=== PATIENT | female | born 1985 | race Caucasian/White ===

== ENCOUNTER 2020-08-21 10:49 | Emergency (ER) | payer OTHER, MEDICAID, SELFPAY ==
[2020-08-21 10:54] VITALS: BP 140/88; PULSE 70; RESP 15; TEMP 37.1; O2SAT 99
--- NOTE | 2020-08-21 11:21 | ED.DENTAL ---
HPI - Dental/Oral <ANALIA Pizano - Last Filed: 08/21/20 13:52> General Chief complaint: Dental/Oral Stated complaint: mouth pain/swelling post teeth out Time Seen by Provider: 08/21/20 10:50 Source: patient Mode of arrival: Ambulatory Limitations: no limitations History of Present Illness HPI Narrative: This is a 34 year female, nonsmoker, who has 2 left lower teeth extraction [address] Haas in [facility] presents to ED with chief complain of severe pain on the tooth extraction site. She had taken Keflex antibiotic medication 1 day prior to the procedure and she has continued the antibiotic medication has about 3 more day course of the medication and ran out of Percocet yesterday. She also is taking Tylenol and Advil for pain management but this has not been effective. Patient has foul tasting drainage from the extraction site, ran a low grade fever upto 99.3 3 days ago despite the antibiotic medications and antipyretics. Patient is able to swallow. She denies fever, chills but has occasional nausea. Patient reports cervical and submandibular lymph nodes tenderness. She contacted Dr. Haas's office but was not able to get a follow up appointment. Related Data Home Medications Medication Instructions Recorded Confirmed trazodone 25 mg PO BEDTIME PRN 08/21/20 08/21/20 Previous Rx's Medication Instructions Recorded albuterol sulfate 90 mcg/actuation 2 puff INHALATION Q4-6H PRN #18 g 08/14/20 aerosol inhaler amoxicillin-pot clavulanate 1 tab PO BID 7 Days #14 tab 08/21/20 [Augmentin] oxycodone-acetaminophen 1 tab PO TID PRN #7 tab 08/21/20 Allergies Allergy/AdvReac Type Severity Reaction Status Date / Time latex Allergy Verified 08/21/20 10:56 Sulfa (Sulfonamide AdvReac vomiting Verified 08/21/20 10:56 Antibiotics) almonds Allergy Severe swelling, Uncoded 08/14/20 16:25 hives, lip swelling Review of Systems <ANALIA Pizano - Last Filed: 08/21/20 13:52> Review of Systems Narrative: General: See HPI HEENT: See HPI Respiratory: Denies dyspnea, cough, wheezing, hemoptysis, sputum. Cardiovascular: Denies chest pain, palpitations, orthopnea, edema. Gastrointestinal: Denies (+) nausea, vomiting, abdominal pain, diarrhea, constipation, melena. : Denies dysuria, frequency, incontinence, hematuria, urinary retention. Musculoskeletal: Denies weakness, joint pain or bony pain. Skin: Denies rash, skin lesions, or other. Neurologic: Denies weakness, headache, numbness, change in speech, confusion, seizures, incoordination. Patient History <ANALIA Pizano - Last Filed: 08/21/20 13:52> Social History Smoking Status: Never smoker Smoking Status: Never smoker alcohol intake frequency: 0-2 drinks per day Substance Use Type: marijuana Exam <ANALIA Pizano - Last Filed: 08/21/20 13:52> Narrative Exam Narrative: General appearance: well developed, well nourished, in no acute distress. Head: normocephalic, atraumatic, no scalp lesions, non-tender. ENT: Hearing grossly intact. Nose without bleeding, purulent discharge, septal hematoma or deviation. Left cheek tender to palpate. Left lower gum s/p extraction on #18, 19 with yellow discoloration on the gum. No obvious drainage noted. Mucous membrane dry. Throat without erythema, tonsillar hypertrophy or exudate. Uvula in midline, airway patent. Neck/Thyroid: neck supple, full range of motion, no visible masses or meningeal signs. No JVD, non-tender without lymphadenopathy. Skin: no suspicious rashes, lesions over visible areas. Warm and dry and appropriate color for ethnicity. Heart: no clubbing, no cyanosis, no edema. S1 and S2 normal. RRR w/o murmurs, clicks, or bruits. Lungs: Breathing even and unlabored. No stridor. No accessory muscles used. Able to speak in full sentences. Chest: normal shape and expansion. Abdomen: non-obese, non-distended. Neurologic: alert and oriented. Cognitive exam, APPROVER and PNS grossly intact on informal exam. Psych: good eye contact, normal affect. Initial Vital Signs Initial Vital Signs: Vital Signs Temperature 98.7 F 08/21/20 10:54 Pulse Rate 70 08/21/20 10:54 Respiratory Rate 15 08/21/20 10:54 Blood Pressure 140/88 08/21/20 10:54 Pulse Oximetry 99 08/21/20 10:54 <Anthony Munroe DO - Last Filed: 08/21/20 19:05> Initial Vital Signs Initial Vital Signs: Vital Signs Temperature 98.7 F 08/21/20 10:54 Pulse Rate 70 08/21/20 10:54 Respiratory Rate 15 08/21/20 10:54 Blood Pressure 140/88 08/21/20 10:54 Pulse Oximetry 99 08/21/20 10:54 Scores <Derik StokesCATRACHO contehP - Last Filed: 08/21/20 13:52> GCS Sara coma scale eye opening: Spontaneous Sara coma scale verbal response: Orientated Sara coma scale motor response: Obey commands Sara coma scale total score: 15 qSOFA Altered Mental Status (GCS <15): No Respiratory rate greater than/equal to 22: No Systolic blood pressure less than or equal to 100: No qSOFA Total: 0 0-1 Not High Risk 1-3 High risk Course <[facility] - Last Filed: 08/21/20 13:52> Vital Signs Vital signs: Vital Signs - 8 hr 08/21/20 11:46 Pulse Rate 93 H Respiratory Rate 12 Blood Pressure 122/70 Pulse Oximetry 98 <Anthony Munroe DO - Last Filed: 08/21/20 19:05> Vital Signs Vital signs: Vital Signs - 8 hr 08/21/20 11:46 Pulse Rate 93 H Respiratory Rate 12 Blood Pressure 122/70 Pulse Oximetry 98 MDM - Dental/Oral <[facility] - Last Filed: 08/21/20 13:52> Differential Diagnosis Differential diagnosis: Likely gingival abscess, toothache, dental abscess and other (s/p dental extraction infection, normal healing process) Medical Records Attestation: I reviewed the patient's medical records. MDM Narrative Medical decision making narrative: Is a 34 year female who had two tooth dental extraction done 6 days ago at local dental office and who is currently taking Keflex 500 mg q.i.d. presents to ED with low-grade fever, pain not managed well with [id number] Tylenol, Motrin, and oxycodone with left-sided submandibular and cervical lymph node pain. Physical exam unremarkable except yellowish discoloration on the gum where the extraction occured with adenopathy. Left cheek and gum exquisite tenderness to palpate. Patient advised to follow-up with the dentist for the re-evaluation in next 1-2 days. At this time, given patient had low-grade fever with not resolving pain with narcotic medications, changed antibiotic medication to Augmentin and a few tabs of Oxycodone provided with narcotic medication precautions. Return precautions discussed with patient and she verbalized understanding in agreement with treatment plan. Work excuse note provided for next couple of days. Discharge Plan Departure Patient Disposition: Home Clinical Impression: Pain, dental Instructions: DI for Dental Pain Activity Restrictions/Additional Instructions: You have been diagnosed with [dental pain after two teeth extraction not managed well with pain and antibiotic medications]. What to do: *Take your medications as directed. Please start Augmentin twice a day for next 7 days and stop Keflex. You can take [id number] Tylenol and or Motrin as needed for discomfort. Tylenol 650 to 1000 mg up to 3 times a day as needed for pain. Ibuprofen 400-600 mg up to 3 times a day as needed for pain with food. For severe pain, you can add 1 tab of oxycodone/Tylenol which is narcotic pain medication. Please do not drive, drink alcohol, or operate heavy equipments. Also, it can cause constipation so please take precautions. This medication have been transmitted to [facility]. *Follow up with your dentist in 1-2 days, call for an appointment. Let them know you were seen in the ED and that we asked you to be seen in follow up. *Return to ED if you have any new, worsening, or concerning symptoms, such as [worsening pain, swelling, fever, unable to tolerate fluids, difficulty with swallowing, chest pain, breathing difficulty or any acute concerns]. Prescriptions: New amoxicillin-pot clavulanate [Augmentin] 875-125 mg tablet 1 tab PO BID 7 Days Qty: 14 RF: 0 oxycodone-acetaminophen 5-325 mg tablet 1 tab PO TID PRN (Reason: pain) Qty: 7 RF: 0 No Action albuterol sulfate 90 mcg/actuation HFA aerosol inhaler 2 puff inhalation Q4-6H PRN (Reason: shortness of breath or wheezing) Qty: 18 RF: 2 trazodone 50 mg tablet 25 mg PO BEDTIME PRN (Reason: Insomnia) RF: 0 Referrals: Karla Esquivel ARNP [Primary Care Provider] - Stand Alone Forms: Work Release Note <Anthony Munroe DO - Last Filed: 08/21/20 19:05> [facility] Toritoature Attestation: I was immediately available in the department for consultation. This documentation has been reviewed and I agree with assessment and plan. Supervised by Anthony Munroe DO
[2020-08-21 11:46] VITALS: BP 122/70; PULSE 93; RESP 12; O2SAT 98
== END 2020-08-21 11:47 | disposition home or self-care (01) ==
LOC: ED 11:36
PROVIDERS: Emergency Provider Nurse Practitioner Family; PCP Registered Nurse
DX: K08.89 Other specified disorders of teeth and supporting structures (principal)
CPT/HCPCS: 99281

== ENCOUNTER → 2020-09-14 10:38 | Outpatient (CLI) | payer OTHER, MEDICAID, SELFPAY | PROVIDERS: PCP Registered Nurse; Visit Provider Nurse Practitioner | DX: R30.0 Dysuria (principal) | CPT/HCPCS: 87086 ==

== ENCOUNTER → 2020-09-19 10:38 | Outpatient (CLI) | payer OTHER, MEDICAID, SELFPAY ==
[2020-09-19 11:49] LABS: Add Manual Diff / Slide Review NO; Basophils Absolute Auto 100 /uL (0-100); Basophils Percent Auto 0.8 % (0-2); Eosinophils Absolute Auto 500 /uL (0-450); Eosinophils Percent Auto 7.2 % (2-4); Hematocrit 40.4 % (36-46); Hemoglobin 12.9 g/dL (12.0-16.0); Lymphocytes Absolute Auto 2700 /uL (1100-4500); Lymphocytes Percent Auto 37.5 % (25-40); Mean Corpuscular Hemoglobin 25.6 PG (26-34); Monocytes Absolute Auto 600 /uL (0-900); Monocytes Percent Auto 8.8 % (3-14); Neutrophils Absolute Auto 3300 /uL (1500-7000); Neutrophils Percent Auto 45.7 % (50-75); Platelet Count 270 X10^3/uL (150-400); Red Blood Cell Count 5.05 X10^6/uL (4.0-5.2); Red Cell Distribution Width 15.9 % (11.6-14.8); White Blood Cell Count 7.2 X10^3/uL (4.5-11.0)
[2020-09-19 11:56] LABS: Alanine Aminotransferase 33 IU/L (<35); Albumin 4.3 g/dL (3.5-5.0); Albumin Globulin Ratio 1.3 (1.0-2.8); Alkaline Phosphatase 84 U/L (38-126); Aspartate Aminotransferase 37 IU/L (14-36); BUN Creatinine Ratio 17.9 (6-22); Bilirubin Total 0.7 mg/dL (0.2-1.3); Blood Urea Nitrogen 14 mg/dL (7-17); Calcium 9.5 mg/dL (8.4-10.2); Carbon Dioxide 22 mmol/L (22-32); Chloride 104 mmol/L (98-107); Estimated Glomerular Filt Rate > 60.0 mL/min (>60); Globulin 3.4 g/dL (1.7-4.1); Glucose 100 mg/dL (70-100); HEMOLYSIS < 15 (0-50); Potassium 4.4 mmol/L (3.4-5.1); Sodium 134 mmol/L (137-145); Total Protein 7.7 g/dL (6.3-8.2)
[2020-09-19 12:06] LABS: Hemoglobin A1C% w Est Avg Glu 5.5 % (4.0-6.0)
[2020-09-19 12:37] LABS: Free T4, Direct Thyroxine 0.92 ng/dL (0.78-2.19)
[2020-09-19 12:51] LABS: Thyroid Stimulating Hormone 2.85 uIU/mL (0.47-4.68)
[2020-09-19 13:12] LABS: Rubella Antibody IgG 54.1 IU/mL (>15)
[2020-09-20 05:17] LABS: Rubeola Measles IgG 84.4 AU/mL (Immune >16.4); Varicella IgG Antibody 2420 index (Immune >165)
[2020-09-20 07:40] LABS: Mumps Virus IgG Antibody 63.5 AU/mL (Immune >10.9)
== END ==
PROVIDERS: PCP Registered Nurse; Referring Provider Obstetrics & Gynecology; Visit Provider Obstetrics & Gynecology
DX: F32.9 Major depressive disorder, single episode, unspecified (principal); D68.0 Von Willebrand disease; F90.9 Attention-deficit hyperactivity disorder, unspecified type; Z31.69 Encounter for other general counseling and advice on procreation
CPT/HCPCS: 36415; 80053; 83036; 84439; 84443; 85025; 86735; 86762; 86765; 86787

== ENCOUNTER 2020-12-07 13:36 | Emergency (ER) | payer OTHER, MEDICAID, SELFPAY ==
[2020-12-07 13:49] VITALS: BP 102/67; PULSE 92; RESP 14; TEMP 36.8; O2SAT 96; BMI 29.2
[2020-12-07] MEDS: TRAMADOL 50 MG TABLET PO (14:45)
--- NOTE | 2020-12-07 14:45 | DI.RAD.S_ITS ---
PROCEDURE: XR WRIST LT MIN 3V INDICATIONS: ? scaphoid fracture 9 days ago TECHNIQUE: 4 views of the wrist were acquired. COMPARISON: None. FINDINGS: Bones: Casting material obscures fine bony detail. No fractures or dislocations. No suspicious bony lesions. Scaphoid view: No displaced fracture. Soft tissues: No suspicious soft tissue calcifications. IMPRESSION: No obvious scaphoid fracture. Small fracture could be obscured by casting material. Recommend follow-up radiographs without cast. Dictated by: Jimmy Mitchell M.D. on 12/07/2020 at 15:01 Approved by: Jimmy Mitchell M.D. on 12/07/2020 at 15:06
[2020-12-07 16:48] VITALS: BP 107/65; PULSE 78; RESP 16; O2SAT 98
--- NOTE | 2020-12-07 17:50 | ED.RECABL ---
HPI - Recheck/Abnormal Lab/Rx <BRAYAN Garcia - Last Filed: 12/07/20 17:57> General Chief Complaint: Recheck/Abnormal Lab/Rx Stated Complaint: Broke Left Arm Time Seen by Provider: 12/07/20 14:11 Source: patient Mode of arrival: Ambulatory Limitations: no limitations History of Present Illness HPI narrative: The patient is a 35-year-old female nonsmoker with history of ADHD who presents with a chief complaint of pain after a scaphoid fracture. She states she tripped and fell in [place] 9 days ago, went to an emergency department there and was diagnosed with a scaphoid fracture. They placed her in a splint that does not immobilize her thumb, and she presents with continued pain. She thinks that somebody stole her tramadol as it was not in her back when she flew home. She has been using heat over her splint, not elevating, and is concerned about continued pain. She has not followed up with anybody regarding her fracture today. Related Data Home Medications Medication Instructions Recorded Confirmed trazodone 25 mg PO BEDTIME PRN 08/21/20 09/28/20 dextroamphetamine-amphetamine ER 10 mg PO DAILY 09/19/20 09/28/20 10 mg 24hr capsule,extend release Previous Rx's Medication Instructions Recorded albuterol sulfate 90 mcg/actuation 2 puff INHALATION Q4-6H PRN #18 g 08/14/20 aerosol inhaler levonorgestrel-ethinyl estradiol 1 tab PO DAILY #28 tab 09/22/20 0.1 mg-20 mcg tablet metoclopramide HCl 10 mg tablet 10 mg PO ONCE #1 tab 09/28/20 tramadol 50 mg PO Q6H PRN #4 tab 12/07/20 Allergies Allergy/AdvReac Type Severity Reaction Status Date / Time latex Allergy Verified 12/07/20 13:49 Sulfa (Sulfonamide AdvReac vomiting Verified 12/07/20 13:49 Antibiotics) almonds Allergy Severe swelling, Uncoded 09/28/20 14:20 hives, lip swelling Review of Systems <BRAYAN Garcia - Last Filed: 12/07/20 17:57> Review of Systems Narrative: GENERAL: Denies chills, fatigue, malaise, fever, sweats. HEENT: Denies sinus pain, ear pain, sore throat, difficulty swallowing, dizziness. RESPIRATORY: Denies dyspnea, cough, wheezing, hemoptysis, sputum. CARDIOVASCULAR: Denies chest pain, palpitations, orthopnea, edema, GASTROINTESTINAL: Denies nausea, vomiting, abdominal pain, diarrhea, constipation, melena. : Denies dysuria, frequency, incontinence, hematuria, urinary retention. MUSCULOSKELETAL: See HPI SKIN: Denies rash, skin lesions, or other NEUROLOGIC: Denies weakness, headache, numbness, change in speech, confusion, seizures, incoordination. PSYCHIATRIC: No concerning psychosocial issues. 12 point review of systems is negative except for those stated above Patient History <BRAYAN Garcia - Last Filed: 12/07/20 17:57> Medical History (Updated 12/07/20 @ 16:39 by BRAYAN Garcia) Allergies Bulimia (~1999) H1N1 influenza (~2008) No significant medical problems PTSD (post-traumatic stress disorder) Surgical History Anesthesia Esophageal ulcer (~2011) History of surgery Family History Mother TIA (transient ischemic attack) Mental health problem Sister Skin cancer Grandfather Diabetes mellitus Grandmother Mental health problem Grandmother Breast cancer Social History Smoking Status: Never smoker Smoking Status: Never smoker alcohol intake frequency: holidays/special occasions only Substance Use Type: marijuana Exam <BRAYAN Garcia - Last Filed: 12/07/20 17:57> Narrative Exam Narrative: GENERAL: This is a well-nourished, well-developed patient, in no acute distress HEAD: Atraumatic. Normocephalic. No temporal or scalp tenderness. EYES: Pupils equal round and reactive. Extraocular motions intact. No scleral icterus. No injection or drainage. ENT: Nose without bleeding, purulent drainage or septal hematoma. Throat without erythema, tonsillar hypertrophy or exudate. Uvula midline. Airway patent. NECK: Trachea midline. No JVD or lymphadenopathy. Supple, nontender, no meningeal signs. CARDIOVASCULAR: Regular rate and rhythm RESPIRATORY: No cough. No increased respiratory effort. No accessory muscle use. EXTREMITIES: Patient presents with left wrist in back slab splint with no thumb immobilization. Upon removal, snuffbox tenderness is noted. Positive capillary noted all fingers left hand. BACK: Nontender without deformity or crepitance. No flank tenderness. NEURO: AOx3. SKIN: No rash or erythema on visible skin Initial Vital Signs Initial Vital Signs: Vital Signs Temperature 98.2 F 12/07/20 13:49 Pulse Rate 92 H 12/07/20 13:49 Respiratory Rate 14 12/07/20 13:49 Blood Pressure 102/67 12/07/20 13:49 Pulse Oximetry 96 12/07/20 13:49 <Mckinley Rabago DO - Last Filed: 12/07/20 18:15> Initial Vital Signs Initial Vital Signs: Vital Signs Temperature 98.2 F 12/07/20 13:49 Pulse Rate 92 H 12/07/20 13:49 Respiratory Rate 14 12/07/20 13:49 Blood Pressure 102/67 12/07/20 13:49 Pulse Oximetry 96 12/07/20 13:49 Procedures <BRAYAN Garcia - Last Filed: 12/07/20 17:57> Orthopedic Splinting/Casting Injury #1: Side: left Upper Extremity Injury Location: wrist Upper Extremity Immobilizer: sling/shoulder immobilizer and thumb spica Post splinting neuro exam: intact Post splinting vascular exam: intact Placed by: Nursing Scores <BRAYAN Garcia - Last Filed: 12/07/20 17:57> GCS Sara coma scale eye opening: Spontaneous Sara coma scale verbal response: Orientated [place] coma scale motor response: Obey commands Sara coma scale total score: 15 Course <BRAYAN Garcia - Last Filed: 12/07/20 17:57> Orders Ordered: ED Orders 12/07/20 14:45 XR wrist LT min 3V Stat Discontinued Medications Tramadol HCl (Tramadol 50 Mg Tablet) 50 mg PO NOW ONE Stop: 12/07/20 14:25 Last Admin: 12/07/20 14:45 Dose: 50 mg Documented by: SALIMA Vital Signs Vital signs: Vital Signs - 8 hr 12/07/20 13:49 12/07/20 16:48 Temperature 98.2 F Pulse Rate 92 H 78 Respiratory Rate 14 16 Blood Pressure 102/67 107/65 Pulse Oximetry 96 98 <Mckinley Rabago DO - Last Filed: 12/07/20 18:15> Orders Ordered: ED Orders 12/07/20 14:45 XR wrist LT min 3V Stat Discontinued Medications Tramadol HCl (Tramadol 50 Mg Tablet) 50 mg PO NOW ONE Stop: 12/07/20 14:25 Last Admin: 12/07/20 14:45 Dose: 50 mg Documented by: SALIMA Vital Signs Vital signs: Vital Signs - 8 hr 12/07/20 13:49 12/07/20 16:48 Temperature 98.2 F Pulse Rate 92 H 78 Respiratory Rate 14 16 Blood Pressure 102/67 107/65 Pulse Oximetry 96 98 [facility] - Recheck/Abnormal Lab/Rx <BRAYAN Garcia - Last Filed: 12/07/20 17:57> Imaging Data Extremity x-ray #1: Radiologist's Impression: [address] [place] [id number] ReportSigned Patient: Liana Reyes [facility]#: [id number]: 1985Acct:[id number]/Sex: 35 / FDate of Service: 12/07/20Loc: EDAccession Number: [id number] Procedure: XR wrist LT min 3V Ordering Provider: Jeanna Johnson PROCEDURE: XR WRIST LT MIN 3V INDICATIONS: ? scaphoid fracture 9 days ago TECHNIQUE: 4 views of the wrist were acquired. COMPARISON: None. FINDINGS: Bones: Casting material obscures fine bony detail. No fractures or dislocations. No suspicious bony lesions. Scaphoid view: No displaced fracture. Soft tissues: No suspicious soft tissue calcifications. IMPRESSION: No obvious scaphoid fracture. Small fracture could be obscured by casting material. Recommend follow-up radiographs without cast. Dictated by: Jimmy Mitchell M.D. on 12/07/2020 at 15:01 Approved by: Jimmy Mitchell M.D. on 12/07/2020 at 15:06 [facility] Narrative Medical decision making narrative: The patient is a 35-year-old female who presents with a chief complaint of pain after a scaphoid fracture. She presents with a splint that does not immobilize her thumb, so repeat films were taken. Given that the patient has continued pain in the snuffbox region, she was placed in a thumb spica in the emergency department today after speaking with Dr Rabago. I discussed at length the importance of following up with primary care provider as well as [facility]. I did give her a very small pain medication prescription to help get her through the next few days, though discussed policy regarding narcotics the emergency department. Discussed at length rest ice compression elevation. Discussed going back to ER for acute concerns such as decreased circulation or fingers. Patient has no questions or concerns upon discharge states understanding of return precautions as well as follow-up care. Discharge Plan Departure Patient Disposition: Home Clinical Impression: Acute wrist pain Qualifiers: Laterality: left Qualified Code(s): M25.532 - Pain in left wrist Instructions: DI for Wrist Fracture, How To Perform RICE (Rest, Ice, Compress, Elevate), How to Take Care of Your Splint, DI for Wrist Pain Activity Restrictions/Additional Instructions: Thank you for trusting us with your care today. As discussed given the injury in [place] we have placed you in a different splint that immobilizes your thumb. Please use rest ice compression elevation. Please use ice packs over your splint. I have included information on how to take care of a splint. [facility] As discussed, I am a bit restricted given that you had this injury elsewhere and lost your pain medication. Please follow-up with primary care provider. I have also given you contact information to [facility]. As discussed, we did repeat your x-rays today. There is no visible fracture, however given your continued pain we placed you in that splint today. Please come back to the emergency department for any acute concerns such as decreased circulation to your fingers. Prescriptions: New tramadol 50 mg tablet 50 mg PO Q6H PRN (Reason: pain) Qty: 4 RF: 0 No Action metoclopramide HCl [Reglan] 10 mg tablet 10 mg PO ONCE Qty: 1 RF: 0 levonorgestrel-ethinyl estrad 0.1-20 mg-mcg tablet 1 tab PO DAILY Qty: 28 RF: 11 albuterol sulfate 90 mcg/actuation HFA aerosol inhaler 2 puff inhalation Q4-6H PRN (Reason: shortness of breath or wheezing) Qty: 18 RF: 2 dextroamphetamine-amphetamine [Adderall XR] 10 mg capsule,extended release 24hr 10 mg PO DAILY RF: 0 trazodone 50 mg tablet 25 mg PO BEDTIME PRN (Reason: Insomnia) RF: 0 Referrals: [facility] [Provider Group] [facility] [Outside] Monik Anna MD [Primary Care Provider] - <Mckinley Rabago DO - Last Filed: 12/07/20 18:15> Cosign ED Attending Cosignature Attestation: Dr Rabago Co-Sign Statement: I was available for consultation during this patient's emergency department visit. This chart is signed by myself for administrative purposes only. I did not have direct contact with this patient during this visit. They were seen independently by the APC.
== END 2020-12-07 16:49 | disposition home or self-care (01) ==
PROVIDERS: Emergency Provider Nurse Practitioner Family; PCP Family Medicine
DX: M25.532 Pain in left wrist (principal)
CPT/HCPCS: 29125; 73110; 99283

== ENCOUNTER → 2021-06-18 14:18 | Outpatient (CLI) | payer OTHER, MEDICAID, SELFPAY ==
--- NOTE | 2021-06-18 | DI.US.S_ITS ---
PROCEDURE: US OB <= 14 WEEKS FETUS INDICATIONS: SIZE GREATER THAN DATES OUTSIDE/PRIOR DATING DATA: Last menstrual period (LMP): April 19, 2021. LMP-based estimated date of delivery (JODI): January 15, 2022. First dating scan (date): June 18, 2021. Estimated date of delivery (JODI) from first dating scan: February 15, 2022. TECHNIQUE: Real-time scanning was performed of the fetus and maternal pelvic organs, with image documentation. Endovaginal scanning was also performed to better visualize the fetus and maternal ovaries. COMPARISON: None. FINDINGS: Embryo: Not seen. Visible amnion. Yolk sac: Not seen Maternal organs: Hypoechoic lesion within the left ovary measuring up to 3.7 cm, which may reflect a corpus luteum. The right ovary is unremarkable. IMPRESSION: Possible blighted ovum. Consider correlation with serial quantitative beta hCGs and follow-up ultrasound as warranted. We strive to produce accurate, complete, and clear reports of imaging services. To assist us in improving patient care, this report was composed using standard report templates and voice recognition software. Therefore, it may contain abnormal punctuation, insertions and/or omissions. Occasional wrong-word or sound-alike substitutions may occur. Though we review the report and make efforts to correct it, we do recommend that the report be read carefully in proper context to recognize any text inaccuracies. Dictated by: Griffin Fall M.D. on 06/18/2021 at 15:34 Approved by: Griffin Fall M.D. on 06/18/2021 at 15:48
== END ==
PROVIDERS: PCP Family Medicine; Referring Provider Family Medicine; Visit Provider Family Medicine
DX: Z36.88 Encounter for antenatal screening for fetal macrosomia (principal)
CPT/HCPCS: 76801; 76817

== ENCOUNTER → 2021-06-19 15:25 | Outpatient (CLI) | payer OTHER, MEDICAID, SELFPAY ==
[2021-06-19 16:07] LABS: Add Manual Diff / Slide Review NO; Basophils Absolute Auto 100 /uL (0-100); Basophils Percent Auto 0.5 % (0-2); Eosinophils Absolute Auto 400 /uL (0-450); Eosinophils Percent Auto 4.3 % (2-4); Hematocrit 39.5 % (36-46); Hemoglobin 13.1 g/dL (12.0-16.0); Lymphocytes Absolute Auto 2800 /uL (1100-4500); Lymphocytes Percent Auto 28.7 % (25-40); Mean Corpuscular HGB Conc 33.3 % (30-36); Mean Corpuscular Hemoglobin 27.7 PG (26-34); Mean Corpuscular Volume 83.3 fL (80-100); Monocytes Absolute Auto 700 /uL (0-900); Monocytes Percent Auto 7.4 % (3-14); Neutrophils Absolute Auto 5700 /uL (1500-7000); Neutrophils Percent Auto 59.1 % (50-75); Platelet Count 306 X10^3/uL (150-400); Red Blood Cell Count 4.74 X10^6/uL (4.0-5.2); Red Cell Distribution Width 14.9 % (11.6-14.8); White Blood Cell Count 9.6 X10^3/uL (4.5-11.0)
[2021-06-19 17:26] LABS: HCG Quantitative /Beta subunit 32968 mIU/mL
== END ==
PROVIDERS: PCP Family Medicine; Referring Provider Family Medicine; Visit Provider Family Medicine
DX: Z34.00 Encounter for supervision of normal first pregnancy, unspecified trimester (principal)
CPT/HCPCS: 36415; 84443; 84702; 85025; 86850; 86900; 86901

== ENCOUNTER → 2021-06-22 11:05 | Outpatient (CLI) | payer OTHER, MEDICAID, SELFPAY ==
[2021-06-22 14:19] LABS: HCG Quantitative /Beta subunit 30605 mIU/mL
== END ==
PROVIDERS: PCP Family Medicine; Referring Provider Family Medicine; Visit Provider Family Medicine
DX: O20.0 Threatened abortion (principal)
CPT/HCPCS: 36415; 84702

== ENCOUNTER → 2021-06-27 07:15 | Outpatient (CLI) | payer OTHER, MEDICAID, SELFPAY ==
--- NOTE | 2021-06-27 | DI.US.S_ITS ---
PROCEDURE: US OB <= 14 WEEKS FETUS INDICATIONS: FOLLOW-UP OUTSIDE/PRIOR DATING DATA: Last menstrual period (LMP): April 19, 2021 LMP-based estimated date of delivery (JODI): January 24, 2022 First dating scan (date and location): June 18, 2021 Estimated date of delivery (JODI) from first dating scan: February 05, 2022 The calculations are made using the ultrasound JODI of February 05, 2022 TECHNIQUE: Real-time scanning was performed of the fetus and maternal pelvic organs, with image documentation. Endovaginal scanning was also performed to better visualize the fetus and maternal ovaries. COMPARISON: [facility], US, US PELVIC COMPLETE, 09/19/2020, 10:24. [facility], US, US OB <= 14 WEEKS FETUS, 06/18/2021, 15:05. FINDINGS: Embryo: Yolk sac identified. No pole identified. Mean gestational sac diameter measures 2.1 centimeters corresponding to ultrasound estimated gestational age of 7 weeks 0 days. Heart rate: No heart motion identified. Maternal organs: 3.9 x 4.2 x 3.6 centimeter simple left ovarian cyst. IMPRESSION: 1. Probable nonviable (blighted ovum). Recommend correlation with serial beta HCG. 2. 3.9 x 4.2 x 3.6 centimeters simple left ovarian cyst. Recommend follow-up pelvic ultrasound in 6 weeks to ensure resolution of the finding. Dictated by: Karen Grande MD, PhD on 06/27/2021 at 13:12 Approved by: Karen Grande MD, PhD on 06/27/2021 at 14:12
== END ==
PROVIDERS: PCP Family Medicine; Referring Provider Family Medicine; Visit Provider Family Medicine
DX: O46.91 Antepartum hemorrhage, unspecified, first trimester (principal); O34.81 Maternal care for other abnormalities of pelvic organs, first trimester; N83.292 Other ovarian cyst, left side
CPT/HCPCS: 76801; 76830

== ENCOUNTER → 2021-07-05 14:35 | Outpatient (CLI) | payer OTHER, MEDICAID, SELFPAY ==
[2021-07-05 15:09] LABS: COVID19 -Nasal RAPID Negative (Negative)
== END ==
PROVIDERS: PCP Family Medicine; Visit Provider Obstetrics & Gynecology
DX: Z01.812 Encounter for preprocedural laboratory examination (principal); Z20.822 Contact with and (suspected) exposure to COVID-19
CPT/HCPCS: 87635; C9803

== ENCOUNTER → 2021-07-06 10:03 | Day surgery (SDC) | payer OTHER, MEDICAID, SELFPAY ==
[2021-07-06] VITALS (7 sets, daily range): BP systolic 90–124; BP diastolic 47–83; PULSE 78–120; RESP 12–18; TEMP 35.7–36.6; O2SAT 92–99; BMI 29.2
--- NOTE | 2021-07-06 | PATH_ITS ---
[facility] Accession Number: [id number] No. of containers..01 Tissue . 01 Material submitted: . product of conception - PRODUCTS OF CONCEPTION . 02 Diagnosis: Products of Conception: Chorionic villi present in a background of hypersecretory and decidualized endometrium. No evidence of neoplasm. [facility] 07/10/2021 1639 Local . 02 Electronically signed: . Tank Foy MD, PhD, Pathologist NPI- [id number] . 01 Gross description: . Received one formalin-filled container, labeled with the patient's name and labeled products of conception, are multiple fragments of tissue, mucoid material and blood which measure 7.0 x 4.0 x 1.0 cm in aggregate. No grossly recognizable parts are observed. Impregnator And Drier sections are submitted in three cassettes. ([facility] [place][id number]) /MRV 07/07/2021 1418 Local . 02 Pathologist provided ICD-10: O02.1 . 02 CPT . 920389 Performed at: 01 [facility] [address] [id number] MD Kirby Lora MD Phone: [phone] Performed at: 02 [facility] [address] [place], [place] [id number] MD Leatha Santos MD Phone: [phone]
[2021-07-06] MEDS: LACTATED RINGERS 1,000 ML 42 ML IV (10:10)
--- NOTE | 2021-07-06 11:02 | SUR.OPER ---
Lithotomy on padded OR bed, head on pillow, arms secured on padded arm boards at <90 degrees abduction. Legs secured in padded yellow fins stirrups.
--- NOTE | 2021-07-06 11:06 | PM.HP.1 ---
History of Present Illness History of Present Illness Date Patient Seen: 07/06/21 Time Patient Seen: 11:07 Chief complaint: SDC Narrative: Patient is a 35-year-old 1 para 0 with a blighted ovum, she is here for a suction D&C Patient History Medical History (Updated 12/22/20 @ 00:00 by ) Allergies Bulimia (~1999) H1N1 influenza (~2008) No significant medical problems PTSD (post-traumatic stress disorder) Surgical History Anesthesia Esophageal ulcer (~2011) History of surgery Family & Social History Family History Mother TIA (transient ischemic attack) Mental health problem Sister Skin cancer Grandfather Diabetes mellitus Grandmother Mental health problem Grandmother Breast cancer Social History: household members spouse Tobacco & Substance use: Tobacco type cannabis/marijuana Smoking Status Current some day smoker alcohol intake current alcohol intake frequency a few times a week Substance Use Type marijuana Meds Home Medications and Allergies Home Medications Medication Instructions Recorded Confirmed Type albuterol sulfate 90 mcg/actuation 2 puff INHALATION Q4-6H PRN #18 g 08/14/20 07/06/21 Rx aerosol inhaler dextroamphetamine-amphetamine ER 15 mg PO DAILY 09/19/20 07/06/21 History 10 mg 24hr capsule,extend release (Adderall XR) metoclopramide HCl 10 mg tablet 10 mg PO ONCE #1 tab 09/28/20 07/03/21 Rx (Reglan) tramadol 50 mg tablet 50 mg PO Q6H PRN #4 tab 12/07/20 07/03/21 Rx metformin 500 mg tablet 100 mg PO DAILY 07/06/21 07/06/21 History Allergies Allergy/AdvReac Type Severity Reaction Status Date / Time latex Allergy Verified 12/07/20 13:49 Sulfa (Sulfonamide AdvReac vomiting Verified 12/07/20 13:49 Antibiotics) almonds Allergy Severe swelling, Uncoded 09/28/20 14:20 hives, lip swelling Exam Vital Signs (past 8 hours): - 07/06/21 10:30 Temperature 98 F Pulse Rate 78 Respiratory Rate 18 Blood Pressure 109/73 Pulse Oximetry 99 Oxygen Delivery Method Room Air Narrative Exam Narrative: HEENT: No thyromegaly, no anterior cervical or supraclavicular lymphadenopathy. Lungs:Clear to auscultation bilaterally, no wheezes. Cardiovascular: Regular rate and rhythm, no murmurs, rubs, or gallops. Abdomen: No scars. No hepatosplenomegaly. No masses palpable. External genitalia: Normal Vagina: Normal Cervix: Normal Bimanual exam: 8 Week size uterus. Mobile. No masses or tenderness Assessment & Plan Assessment & Plan narrative: Assessment: 35-year-old 1 para 0 with a blighted ovum Plan: Suction D&C The risks, benefits, and alternatives to the procedure were explained to the patient. The risks including bleeding, infection, and uterine perforation. She understands these risks and agrees to proceed. A full par Q was held and consent form was signed. COVID-19 COVID-19 status: Negative Result date/Date tested (Pos, Neg/Pending): 07/05/21 Time Spent With Patient Time with patient: less than 30 minutes Critical Care time: I spent a total of [] minutes of critical care time on this patient's care today; this time is exclusive of procedural time.
--- NOTE | 2021-07-06 11:09 | PM.PREOP ---
Pre-operative Note COVID-19 COVID-19 status: Negative Result date/Date tested (Pos, Neg/Pending): 07/05/21 Interval Note History & Physical reviewed/Exam performed by Physician: Yes Changes to H&P: No H&P completed within 30 days and has changed as indicated here:: 07/06/21
--- NOTE | 2021-07-06 11:38 | PM.GYNOP.1 ---
Operative Date/Time/Diagnoses Date of procedure: 07/06/21 Time of procedure: 11:38 Pre-op diagnosis: Blighted ovum Post-op diagnosis: same Procedure & Clinicians Procedure: Procedures Operation Date: 07/06/21 09:45 Actual Procedure Side Surgeon p Suction Dilation and Curettage Radha Richards MD Indications: Blighted ovum Surgeon: Radha Richards Anesthesia Type: General (LMA) Operative Notes Findings: 8 week size anteverted uterus Large amount of products conception Closure Type: not applicable Specimen(s): products of conception Estimated blood loss (mL): 100 Blood products transfused: none Procedure in detail: After informed consent was obtained, the patient was taken to the operating room where she was placed in the dorsal supine position. After adequate LMA general anesthesia was achieved, she was placed in dorsal lithotomy position, and prepped and draped in the usual sterile fashion. A time-out was performed. A bimanual exam was performed which revealed an 8 week size anteverted uterus. A bivalve speculum was placed into the vagina and the anterior lip of the cervix was grasped with a single-tooth tenaculum. Cervical os was sequentially dilated until the # 7 curved plastic curette could pass easily into the endometrial cavity. Several passes with suction revealed a large amount of fluid and some tissue. Plastic curette was removed. Gentle sharp curettage was performed yielding a moderate amount of tissue. Several more passes with suction revealed tissue and blood. On the fourth pass only blood. The instruments were removed from the uterus. The single-tooth tenaculum was removed from the anterior lip of the cervix. There was a small amount of bleeding coming from the cervical os. The bivalve speculum was removed from the vagina. Sponge, lap, and instrument counts were correct x2. The patient tolerated the procedure well, and was taken to PACU in stable condition. Complications: none Post-operative Condition: stable Disposition: PACU Plan for aftercare: Home after recovery
[2021-07-06] MEDS: ONDANSETRON 4 MG/2 ML INJ IV (11:56)
[2021-07-06] MEDS: OXYCODONE IR 5 MG TABLET PO (12:02)
== END | disposition home or self-care (01) ==
PROVIDERS: PCP Family Medicine; Referring Provider Obstetrics & Gynecology; Visit Provider Obstetrics & Gynecology
PROC: (CPT 58120; principal; 2021-07-06 09:45)
DX: O02.1 Missed abortion (principal); Z3A.01 Less than 8 weeks gestation of pregnancy
CPT/HCPCS: 59820; J1100; J1885; J2405; J2704; J3010

== ENCOUNTER 2023-04-12 14:51 | Emergency (ER) | payer OTHER, SELFPAY ==
[2023-04-12 15:09] VITALS: BP 132/79; PULSE 93; RESP 18; TEMP 36.7; O2SAT 96; BMI 26.5
--- NOTE | 2023-04-12 15:13 | DI.RAD.S_ITS ---
PROCEDURE: XR FINGER LT MIN 2V INDICATIONS: Bella incident TECHNIQUE: AP hand, 2 views of the 2nd finger(s) acquired. COMPARISON: None. FINDINGS: Material is seen, somewhat limiting evaluation. Bones: There is a potential minimally displaced fracture seen involving the distal aspect of the distal phalanx of the 2nd finger, which is only seen on 1 image. Soft tissues: No suspicious soft tissue calcifications. No radiopaque foreign bodies are seen. IMPRESSION: Potential minimally displaced fracture involving the distal phalanx seen on 1 image only. Please consider short-term follow-up versus CT for further evaluation. Dictated by: Klever Huntley M.D. on 04/12/2023 at 14:33 Approved by: Klever Huntley M.D. on 04/12/2023 at 14:34
[2023-04-12] MEDS: TET,DIPH,PERTUSS(ACELL),VAC/PF 0.5 ML SYRINGE IM (15:29)
[2023-04-12] MEDS: IBUPROFEN 400 MG TABLET PO (15:43)
--- NOTE | 2023-04-12 15:59 | ED.WOUNDLAC ---
HPI - Wound/Laceration General Chief Complaint: Wound/Laceration Stated Complaint: chop finger per pt Time Seen by Provider: 04/12/23 15:26 Source: patient Mode of arrival: Ambulatory History of Present Illness HPI narrative: 37-year-old woman with a history of ADD and diabetes presents after injuring her left index finger. They were making apple cider and she was using a tool and was concerned that she may have chopped the tip of her finger off. She is experiencing quite a bit of pain. Bleeding is controlled. She has had no other recent injuries or concerns Related Data Home Medications Medication Instructions Recorded Confirmed dextroamphetamine-amphetamine ER 15 mg PO DAILY 09/19/20 04/05/22 10 mg 24hr capsule,extend release (Adderall XR) metformin 500 mg tablet 500 mg PO DAILY 04/05/22 04/05/22 semaglutide 2 mg/dose (8 mg/3 mL) 2 mg SUBCUT QWEEK 04/05/22 04/05/22 subcutaneous pen injector (Ozempic) Previous Rx's Medication Instructions Recorded albuterol sulfate 90 mcg/actuation 2 puff inhalation Q4-6H PRN 08/14/20 aerosol inhaler shortness of breath or wheezing #18 grams oxycodone-acetaminophen 5 mg-325 1 tab PO Q6H PRN pain #7 tabs 04/12/23 mg tablet Allergies Allergy/AdvReac Type Severity Reaction Status Date / Time latex Allergy Verified 04/12/23 15:09 Sulfa (Sulfonamide AdvReac vomiting Verified 04/12/23 15:09 Antibiotics) almonds Allergy Severe swelling, Uncoded 04/12/23 15:09 hives, lip swelling Review of Systems Review of Systems Narrative: Pertinent positive and negative findings as per HPI Patient History Medical History Allergies PTSD (post-traumatic stress disorder) Bulimia (~1999) H1N1 influenza (~2008) No significant medical problems Surgical History Anesthesia History of surgery Esophageal ulcer (~2011) Family History Mother TIA (transient ischemic attack) Mental health problem Sister Skin cancer Grandfather Diabetes mellitus Grandmother Mental health problem Grandmother Breast cancer Social History household members: spouse Smoking Status: Current some day smoker alcohol intake: current Smoking Status: Current some day smoker alcohol intake frequency: a few times a week Substance Use Type: marijuana Exam Initial Vital Signs Initial Vital Signs: Vital Signs Temperature 98.0 F 04/12/23 15:09 Pulse Rate 93 H 04/12/23 15:09 Respiratory Rate 18 04/12/23 15:09 Blood Pressure 132/79 04/12/23 15:09 Pulse Oximetry 96 04/12/23 15:09 Oxygen Delivery Method Room Air 04/12/23 15:09 General: Alert appropriate in no acute distress Respiratory: Able to speak in full sentences, no obvious respiratory distress Skin: No obvious rashes, warm and dry Neurologic: Grossly intact no obvious asymmetries or abnormalities Psych: appropriate insight and affect, cooperative Left index finger has a 1.5 cm laceration that just comes to the nail bed but does not seem to involve the nail bed itself. She is neurovascularly intact distally Procedures Laceration Repair Left index finger: Time of procedure: 16:09 Site: hand Side (If applicable): left Size (cm): 1.5 Description: linear Depth: simple, single layer Local Anesthetic: lidocaine 1% Amount of anesthesia used (mL): 2 Pre-repair: wound explored Skin layer closed with: nylon Skin layer suture size: 4-0 Number of sutures: 1 Technique: horizontal mattress Course Orders Ordered: ED Orders 04/12/23 15:13 XR finger LT min 2V Stat Discontinued Medications Diphtheria/Tetanus/Acell Pertussis (Tet,Diph,Pertuss(Acell),Vac/Pf 0.5 Ml Syringe) 0.5 ml IM .ONCE ONE Stop: 04/12/23 15:15 Last Admin: 04/12/23 15:29 Dose: 0.5 ml Documented By: AGUSTIN Ibuprofen (Ibuprofen 400 Mg Tablet) 400 mg PO NOW ONE Stop: 04/12/23 15:40 Last Admin: 04/12/23 15:43 Dose: 400 mg Documented By: JOHNNIES Vital Signs Vital signs: Vital Signs - 8 hr 04/12/23 15:09 Temperature 98.0 F Pulse Rate 93 H Respiratory Rate 18 Blood Pressure 132/79 Pulse Oximetry 96 Oxygen Delivery Method Room Air MDM - Wound/Laceration MDM Narrative Medical decision making narrative: CC: Laceration to left distal index finger Data collected from: patient, spouse Differential considered: Superficial laceration, deep laceration, nail involvement versus not, underlying fracture Exam documented above, pertinent findings include: Fairly superficial laceration that does not involve the nail bed, she is neurovascularly intact distally Imaging studies independently reviewed: No obvious fractures appreciated Treatments: Sutures placed, oral ibuprofen given Discussion: Minor laceration to the distal tip left index finger single suture, horizontal mattress, placed without complication. Patient tolerated the procedure well. Suture will need to come out in approximately a week. Went over minor laceration wound care. Questions are answered and she is safe for discharge Discharge Plan Departure Patient Disposition: Home Clinical Impression: Laceration Instructions: Tetanus, Diphtheria, Pertussis (Tdap) Vaccine, DI for Minor Laceration Activity Restrictions/Additional Instructions: Thank you for coming in today The x-ray of your finger did not show any acute bony injury. The laceration itself was fairly shallow. I used 1 stitch to hold it closed. I suspect that the crush part of the injury is what is causing the majority of your pain. Using 400 mg of ibuprofen (2 [id number] pills) and 1 Tylenol every 6 hours can be very helpful in controlling pain. For severe pain you can use 400 mg of ibuprofen and 1 Percocet Keep the wound covered. You can have the stitches taken out on or about April 19. If you do not notice any increasing redness, drainage, pain or other signs of infection it would be appropriate to return to the emergency department Your tetanus status was updated today Prescriptions: New oxycodone-acetaminophen 5-325 mg tablet 1 tab PO Q6H PRN (Reason: pain) Qty: 7 0RF No Action Ozempic 2 mg/dose (8 mg/3 mL) pen injector 2 mg SUBCUT QWEEK albuterol sulfate 90 mcg/actuation HFA aerosol inhaler 2 puff inhalation Q4-6H PRN (Reason: shortness of breath or wheezing) Qty: 18 2RF dextroamphetamine-amphetamine [Adderall XR] 10 mg capsule,extended release 24hr 15 mg PO DAILY metformin 500 mg tablet 500 mg PO DAILY Patient Comments: take 1 tablet by mouth twice a day Referrals: Anna,Monik, MD [Primary Care Provider] - Stand Alone Forms: Patient Portal/API
[2023-04-12] MEDS: BACITRACIN OINT 0.9 GM PCKT 1 APPLIC TOP (16:11)
--- NOTE | 2023-04-12 16:30 | PC.NURSE ---
Sutures performed by Dr. Varela
== END 2023-04-12 16:16 | disposition home or self-care (01) ==
PROVIDERS: Emergency Provider Emergency Medicine; PCP Family Medicine
DX: S61.211A Laceration without foreign body of left index finger without damage to nail, initial encounter (principal); W27.8XXA Contact with other nonpowered hand tool, initial encounter; Z23 Encounter for immunization
CPT/HCPCS: 12001; 73140; 90471; 99283; 99284; 90715

== ENCOUNTER → 2023-07-28 09:19 | Outpatient (CLI) | payer OTHER, SELFPAY ==
--- NOTE | 2023-07-28 09:22 | DI.US.S_ITS ---
PROCEDURE: US OB <= 14 WEEKS FETUS INDICATIONS: SIZE AND DATING OUTSIDE/PRIOR DATING DATA: Last menstrual period (LMP): 06/07/2023. LMP-based estimated date of delivery (JODI): 03/13/2024. First dating scan (date and location): 07/28/2023. Estimated date of delivery (JODI) from first dating scan: 03/20/2024. The calculations are made using the ultrasound JODI of 03/20/2024. TECHNIQUE: Real-time scanning was performed of the fetus and maternal pelvic organs, with image documentation. Endovaginal scanning was also performed to better visualize the fetus and maternal ovaries. COMPARISON: [facility], , OB <= 14 WEEKS FETUS, 06/27/2021, 7:24. FINDINGS: Embryo: Single live intrauterine is identified with crown-rump length measuring 6 mm corresponding to 6 weeks 2 days. There is a focus of likely perigestational hemorrhage measuring 2.9 x 2.2 x 0.4 cm. Heart rate: 113 beats per minute Maternal organs: Ovaries demonstrate a right corpus luteal cyst.. IMPRESSION: Single live intrauterine with ultrasound gestational age today of 6 weeks 2 days. Recommend followup imaging at 20-22 weeks for dates and anatomy. We strive to produce accurate, complete, and clear reports of imaging services. To assist us in improving patient care, this report was composed using standard report templates and voice recognition software. Therefore, it may contain abnormal punctuation, insertions and/or omissions. Occasional wrong-word or sound-alike substitutions may occur. Though we review the report and make efforts to correct it, we do recommend that the report be read carefully in proper context to recognize any text inaccuracies. Dictated by: Erika Pearson M.D. on 07/28/2023 at 15:21 Approved by: Erika Pearson M.D. on 07/28/2023 at 15:22
== END ==
LOC: US 09:21
PROVIDERS: PCP Family Medicine; Referring Provider Family Medicine; Visit Provider Family Medicine
DX: O09.511 Supervision of elderly primigravida, first trimester (principal); Z3A.01 Less than 8 weeks gestation of pregnancy
CPT/HCPCS: 76801; 76817

== ENCOUNTER → 2023-08-06 15:49 | Outpatient (CLI) | payer OTHER, SELFPAY ==
[2023-08-06 19:07] LABS: HCG Quantitative /Beta subunit 108090 mIU/mL
== END ==
PROVIDERS: PCP Family Medicine; Referring Provider Student in an Organized Health Care Education/Training Program; Visit Provider Student in an Organized Health Care Education/Training Program
DX: N96 Recurrent pregnancy loss (principal)
CPT/HCPCS: 36415; 84702

== ENCOUNTER → 2023-08-08 10:54 | Outpatient (CLI) | payer OTHER, SELFPAY ==
[2023-08-08 12:58] LABS: HCG Quantitative /Beta subunit 124650 mIU/mL
== END ==
PROVIDERS: PCP Family Medicine; Referring Provider Student in an Organized Health Care Education/Training Program; Visit Provider Student in an Organized Health Care Education/Training Program
DX: N96 Recurrent pregnancy loss (principal)
CPT/HCPCS: 36415; 84702

== ENCOUNTER 2023-08-18 10:51 | Day surgery (SDC) | payer OTHER, SELFPAY ==
[2023-08-18] VITALS (8 sets, daily range): BP systolic 93–112; BP diastolic 68–77; PULSE 75–95; RESP 12–20; TEMP 36.2–36.7; O2SAT 84–99; BMI 26.9
--- NOTE | 2023-08-18 | PATH_ITS ---
[facility] Accession Number: [id number] No. of containers..01 Tissue . 01 Material submitted: . product of conception - PRODUCTS OF CONCEPTION . 01 Diagnosis: Products of Conception, Curettings: Immature chorionic villi with hydropic changes and slightly abnormal villous morphology, see comment. Gestational endometrium and decidua present. MRV 08/21/2023 1756 Local . 01 Comment: The chorionic villi are slightly enlarged and edematous with mild trophoblastic hyperplasia and possible cistern formation. An immunostain to p57 will be performed to differentiate between hydropic abortus and rule against a hydatidiform molar gestation. This immunohistochemical result will be reported in an addendum. . 01 Electronically signed: . Zoie Machado MD, Pathologist NPI- [id number] . 01 Gross description: . The specimen is received in formalin labeled with the patient's name, , and products of conception, consists of multiple ramirez spongy to membranous soft tissue fragments admixed with mucohemorrhagic material aggregating to 6.4 x 4.1 x 0.9 cm. No tissue is identified. Childcare Provider sections are submitted in cassettes A1-A2. ([facility]:[id number]) /MRV 08/19/2023 1602 Local . 01 Pathologist provided ICD-10: O02.1 . 01 CPT . 515121, [id number] Performed at: 01 [facility] [address] [place] [address] [address], [place], [place] [id number] MD Kirby Lora MD Phone: [phone]
[2023-08-18] MEDS: DOXYCYCLINE HYCLATE 100 MG TABLET 200 MG PO (12:41)
[2023-08-18] MEDS: LACTATED RINGERS 1,000 ML 42 ML IV (12:42)
--- NOTE | 2023-08-18 12:46 | SUR.OPER ---
Lithotomy on padded OR bed, head on pillow, arms secured on padded arm boards at <90 degrees abduction. Legs secured in padded yellow fins stirrups.
[2023-08-18 13:38] LABS: Add Manual Diff / Slide Review NO; Basophils Absolute Auto 100 /uL (0-100); Basophils Percent Auto 0.7 % (0-2); Eosinophils Absolute Auto 300 /uL (0-450); Eosinophils Percent Auto 3.8 % (2-4); Hematocrit 37.5 % (36-46); Hemoglobin 12.6 g/dL (12.0-16.0); Lymphocytes Absolute Auto 2100 /uL (1100-4500); Lymphocytes Percent Auto 25.5 % (25-40); Mean Corpuscular HGB Conc 33.6 % (30-36); Mean Corpuscular Hemoglobin 28.5 PG (26-34); Mean Corpuscular Volume 84.8 fL (80-100); Monocytes Absolute Auto 600 /uL (0-900); Monocytes Percent Auto 6.8 % (3-14); Neutrophils Absolute Auto 5300 /uL (1500-7000); Neutrophils Percent Auto 63.2 % (50-75); Platelet Count 256 X10^3/uL (150-400); Red Blood Cell Count 4.43 X10^6/uL (4.0-5.2); Red Cell Distribution Width 14.5 % (11.6-14.8); White Blood Cell Count 8.4 X10^3/uL (4.5-11.0)
--- NOTE | 2023-08-18 14:40 | PM.OP.1 ---
Operative Date/Time/Diagnoses Date of procedure: 08/18/23 Time of procedure: 14:00 Pre-op diagnosis: 1. Missed at 8+0 weeks Post-op diagnosis: same Procedure & Clinicians Procedure: Suction dilation and curettage Same procedure as scheduled: Yes Indications: 37yo [id number] diagnosed with missed . After counseling regarding her management options, patient desired to proceed with surgery. Tissue will be sent for chromosome analysis as well, given recurrent loss. Surgeon: Ivett Painter Click Yes if Unassisted: Yes Anesthesia Type: Sedation Operative Notes Findings: Small amount of tissue obtained. Slow uterine bleeding noted at the end of the case. Specimen(s): other (products of conception) Estimated Blood Loss (mL): 200 Blood products transfused: none Procedure in detail: The risks, benefits, indications and alternatives of the procedure were reviewed with the patient and informed consent was obtained. The pt was taken to the operating room where IV sedation was obtained without difficulty. The pt was then placed in the low lithotomy position using gel-padded Amarjit Stirrups. SCDs were placed bilaterally for VTE prophylaxis. The pt was then prepped and draped in the sterile fashion. A sterile speculum was placed in the patient?s vagina and the cervix was visualized.? A single tooth tenaculum was used to grasp the anterior lip of the cervix. The cervix was then gently, serially dilated to a size 9mm Hegar dilator. A 9mm curved suction catheter was then introduced into the uterine cavity and gently advanced to the uterine fundus. The suction device was then activated to 60mmHg and the catheter was rotated to clear the uterus of products of conception. Several passes were performed with a small amount of tissue obtained. A gentle, sharp curettage was then performed until a gritty texture was noted. All tissue was sent to pathology for review. The single tooth tenaculum was then removed from the anterior lip of the cervix. The tenaculum sites were noted to be hemostatic. All instruments were then removed from the patient?s vagina. At the completion of the case the sponge and needle counts were correct x 2. The patient tolerated the procedure well and was taken to the PACU in stable condition. Complications: none Post-operative Condition: stable Disposition: PACU Plan for aftercare: Discharge to home once meeting criteria.
[2023-08-18] MEDS: OXYCODONE IR 5 MG TABLET PO (14:49)
== END 2023-08-18 15:35 | disposition home or self-care (01) ==
PROVIDERS: PCP Family Medicine; Referring Provider Student in an Organized Health Care Education/Training Program; Visit Provider Student in an Organized Health Care Education/Training Program
PROC: (CPT 58120; principal; 2023-08-18 12:45)
DX: O02.1 Missed abortion (principal); Z3A.08 8 weeks gestation of pregnancy
CPT/HCPCS: 59820; 85025; 86850; 86900; 86901; J1885; J2250; J2704; J3010

== ENCOUNTER → 2023-10-03 14:46 | Outpatient (CLI) | payer OTHER, SELFPAY | PROVIDERS: PCP Family Medicine; Referring Provider Student in an Organized Health Care Education/Training Program; Visit Provider Student in an Organized Health Care Education/Training Program | DX: N96 Recurrent pregnancy loss (principal) | CPT/HCPCS: 36415 ==

== ENCOUNTER → 2023-10-27 15:29 | Outpatient (CLI) | payer OTHER, SELFPAY ==
[2023-10-27 18:45] LABS: Hemoglobin A1C% w Est Avg Glu 5.4 % (4.0-6.0)
[2023-10-27 19:01] LABS: Prolactin 12.5 ng/mL (3.0-18.6)
[2023-10-27 19:07] LABS: TSH w/ Reflex to FT4 1.98 uIU/mL (0.47-4.68)
== END ==
PROVIDERS: PCP Family Medicine; Referring Provider Student in an Organized Health Care Education/Training Program; Visit Provider Student in an Organized Health Care Education/Training Program
DX: N96 Recurrent pregnancy loss (principal)
CPT/HCPCS: 36415; 83036; 84146; 84443

== ENCOUNTER → 2023-11-08 09:50 | Outpatient (CLI) | payer OTHER, SELFPAY ==
--- NOTE | 2023-11-08 09:51 | DI.MG.S_ITS ---
BILATERAL DIGITAL SCREENING MAMMOGRAM 3D/2D WITH CAD: 11/08/2023 CLINICAL: Routine screening. Family history of breast cancer. Baseline exam. No prior exams were available for comparison. Both breasts are heterogeneously dense, which may obscure small masses (category c / 51-75% glandular tissue). Current study was also evaluated with a Computer Aided Detection (CAD) system. There is a possible irregular equal density asymmetry in the right breast posterior depth medial region seen on the craniocaudal view only. No other significant masses, calcifications, or other findings are seen in either breast. IMPRESSION: INCOMPLETE: NEEDS ADDITIONAL IMAGING EVALUATION The possible irregular equal density asymmetry in the right breast resembles fibroglandular tissue and is indeterminate. Additional views with possible ultrasound are recommended. Based on Tyrer-Cuzick model (a risk assessment model), the patient's lifetime risk is 23.4% and her 10 year risk is 3.1%. If a patient has an elevated risk, a more comprehensive evaluation should be considered and/or a referral to a genetic counselor. The [place] [employer], [place] [employer], and NCCN Guidelines advise the consideration of Breast MRI as an adjunct to screening mammography in patients whose Lifetime risk to develop breast cancer is 20% or higher. This exam was interpreted at Station ID: [id number]. NOTE: For mammograms, a report in lay terms will be sent to the patient. Approximately 15% of breast malignancies will not be visualized mammographically. In the management of a palpable breast mass, a negative mammogram must not discourage biopsy of a clinically suspicious lesion. Electronically Signed By: aMson Dexter M.D. aty/:11/08/2023 12:37:11 letter sent: Additional Imaging Needed ACR BI-RADS Category 0: Incomplete [id number]
== END ==
PROVIDERS: PCP Family Medicine; Referring Provider Family Medicine; Visit Provider Family Medicine
DX: Z12.31 Encounter for screening mammogram for malignant neoplasm of breast; R92.333 Mammographic heterogeneous density, bilateral breasts; Z80.3 Family history of malignant neoplasm of breast
CPT/HCPCS: 77063; 77067

== ENCOUNTER 2025-06-17 20:03 | Emergency (ER) | payer OTHER, SELFPAY ==
[2025-06-17 20:13] VITALS: BP 150/87; PULSE 90; RESP 22; TEMP 36.1; O2SAT 98; BMI 28.3
--- NOTE | 2025-06-17 20:18 | ED.ABDPAIN ---
HPI - Abdominal Pain <Desmond Park MD - Last Filed: 06/21/25 22:52> General Chief Complaint: Abdominal Pain Stated Complaint: Abd pain Time Seen by Provider: 06/17/25 20:18 Source: patient Mode of arrival: Ambulatory History of Present Illness HPI narrative: 39-year-old female patient, otherwise healthy, who was undergoing a retrieval for in vitro fertilization which was performed 3 days ago. She has had abdominal pain since then and no bowel movement with fullness and feeling that she needs to have a bowel movement. Also nausea and vomiting but no fever or chills. She tried MiraLax and Ex-Lax at home. Related Data Home Medications ?Medication ?Instructions ?Recorded ?Confirmed dextroamphetamine-amphetamine 5 mg 1 tab PO DAILY 10/26/24 10/26/24 tablet Previous Rx's ?Medication ?Instructions ?Recorded albuterol sulfate 90 mcg/actuation 2 puff inhalation Q4-6H PRN 08/14/20 aerosol inhaler shortness of breath or wheezing #18 grams letrozole 2.5 mg tablet 2.5 mg PO DAILY #5 tabs 07/15/24 vitamins no.119-iron 1 tab PO DAILY #90 tabs 10/26/24 fumarate 29 mg-folic acid 1 mg tablet Allergies Allergy/AdvReac Type Severity Reaction Status Date / Time almond Allergy Severe SWELLING, Verified 06/17/25 20:15 HIVES, LIP SWELLING latex Allergy Mild Rash Verified 06/17/25 20:15 Sulfa (Sulfonamide Allergy Mild Rash Verified 06/17/25 20:15 Antibiotics) <Cayetano Montgomery MD - Last Filed: 06/18/25 06:39> History of Present Illness HPI narrative: 39-year-old female patient, otherwise healthy, who was undergoing ovarian egg retrieval surgery 3 days ago for future IVF. She has had abdominal pain since then and no bowel movement with fullness and feeling that she needs to have a bowel movement. Also nausea and vomiting but no fever or chills. She tried MiraLax and Ex-Lax at home. Review of Systems <Desmond Park MD - Last Filed: 06/21/25 22:52> Review of Systems ROS Unobtainable: All systems reviewed & are unremarkable except as noted in HPI and below Gastrointestinal Gastrointestinal: Reports as per HPI Patient History <Desmond Park MD - Last Filed: 06/21/25 22:52> Medical History (Updated 06/18/25 @ 02:57 by Cayetano Montgomery MD) HSV-2 seropositive PCOS (polycystic ovarian syndrome) Allergies PTSD (post-traumatic stress disorder) Migraines Asthma (~2007) ADHD (~1991) Vision disorder History of stomach ulcers Insomnia Depression (~1999) Bulimia (~1999) H1N1 influenza (~2008) Surgical History (Updated 09/04/23 @ 09:57 by Ivett Painter DO) S/P D&C (status post dilation and curettage) History of dilation and curettage History of skin surgery Hawi teeth extracted H/O tooth extraction S/P small incision lenticule extraction (SMILE) using laser Anesthesia Esophageal ulcer (~2011) Family History (Updated 08/06/23 @ 10:23 by Dariana Santamaria RN) Mother TIA (transient ischemic attack) Mental health problem hemorrhage Bleeding disorder Sister Skin cancer Food allergy Grandfather Diabetes mellitus Grandmother Bipolar disorder Obesity Grandmother Breast cancer Alcoholism Father Colon cancer Social History marital status: number of children: 0 household members: spouse lives independently: Yes caregiver/support person: Yes housing: house pets and animals: Yes (cats, aware of precautions) education level: college (bachelor's degree) occupational status: employed ([employer] w/ [employer]) current occupational exposures/hazards: No special hunter needs: No travel history: over 6 months ago seatbelt use: always helmet use: Yes water heater temp set < 120 deg: No working smoke detector in home: Yes fire extinguisher in home: No carbon monox detector in home: Yes firearms in home: No do you feel safe at home: Yes Smoking Status: Never smoker second hand exposure: No alcohol intake: former substance use type: marijuana (Stopped in late 2021) during the past year weight has: decreased > 10 lbs (w/ diet, exercise, and medications) well-balanced diet: daily or most days daily servings fruits/ve or more times/day caffeine: Yes (occasional tea) Type(s) of exercise: aerobic and weight lifting duration: 15-30 minutes/day Smoking Status: Never smoker alcohol intake frequency: a few times a week Exam <Desmond Park MD - Last Filed: 06/21/25 22:52> Narrative Exam Narrative: General: Alert and conversant. Moderate distress. Appears well nourished and well hydrated Craniofacial: No evidence of trauma. Nontender and no swelling. Eyes: PERRLA EOMI conjunctiva clear Lungs: Clear to auscultation with good air movement. No wheezing, rales or rhonchi. No respiratory distress Cardiac: Regular rate and rhythm with no appreciable murmur or gallop Abdomen: Soft, moderate fullness with diffuse gtab-nr-kioncwve tenderness. Normal bowel sounds. No rebound or guarding Musculoskeletal: Exam of the extremities, axial spine and ribcage reveals no deformity, bony tenderness or swelling. Range of motion intact Neuro: Alert and oriented. Cranial nerves, motor, sensory and cerebellar all grossly intact. No focal deficit Skin: Warm and normal color. No rashes Psychological: Normal affect and interaction. No evidence of delusion or psychosis. Normal mood. Initial Vital Signs Initial Vital Signs: Vital Signs Temperature 97.0 F L 06/17/25 20:13 Pulse Rate 90 06/17/25 20:13 Respiratory Rate 22 06/17/25 20:13 Blood Pressure 150/87 H 06/17/25 20:13 Pulse Oximetry 98 06/17/25 20:13 Oxygen Delivery Method Room Air 06/17/25 20:13 <Cayetano Montgomery MD - Last Filed: 06/18/25 06:39> Initial Vital Signs Initial Vital Signs: Vital Signs Temperature 97.0 F L 06/17/25 20:13 Pulse Rate 90 06/17/25 20:13 Respiratory Rate 22 06/17/25 20:13 Blood Pressure 150/87 H 06/17/25 20:13 Pulse Oximetry 98 06/17/25 20:13 Oxygen Delivery Method Room Air 06/17/25 20:13 Course <Desmond Park MD - Last Filed: 06/21/25 22:52> Orders Ordered: Discontinued Medications Hydrocodone Bitart/Acetaminophen (Hydrocodone/Acet 5/325 Prepack) 1 bottle MISC DIRECTED ONE Stop: 06/18/25 02:58 Last Admin: 06/18/25 05:34 Dose: 1 bottle Documented By: AB Hydromorphone HCl (Hydromorphone Hcl 0.5 Mg/0.5 Ml Syringe) 0.5 mg IV NOW ONE Stop: 06/18/25 01:00 Last Admin: 06/18/25 01:32 Dose: 0.5 mg Documented By: INNA Sodium Chloride (Normal Saline 0.9%) 1,000 mls @ 1,000 mls/hr IV BOLUS ONE Stop: 06/17/25 21:19 Last Infusion: 06/18/25 00:09 Dose: Infused Documented By: Admin: 06/17/25 22:24 Dose: 1,000 mls/hr Documented By: SURI Sodium Chloride (Normal Saline 0.9%) 1,000 mls @ 1,000 mls/hr IV BOLUS ONE Stop: 06/18/25 01:58 Last Infusion: 06/18/25 02:54 Dose: Infused Documented By: Admin: 06/18/25 01:32 Dose: 1,000 mls/hr Documented By: INNA Doxycycline Hyclate 100 mg/ (Sodium Chloride) 100 mls @ 100 mls/hr IV NOW ONE Stop: 06/18/25 01:02 Last Infusion: 06/18/25 02:54 Dose: Infused Documented By: Admin: 06/18/25 01:33 Dose: 100 mls/hr Documented By: INNA Ketorolac Tromethamine (Ketorolac 30 Mg/Ml Vial) 30 mg IV NOW ONE Stop: 06/17/25 20:21 Last Admin: 06/17/25 22:25 Dose: 30 mg Documented By: SURI Morphine Sulfate (Morphine 4 Mg/Ml Inj) 4 mg IV NOW ONE Stop: 06/17/25 20:21 Last Admin: 06/17/25 22:25 Dose: 4 mg Documented By: SURI Ondansetron HCl (Ondansetron 4 Mg/2 Ml Inj) 4 mg IV NOW ONE Stop: 06/17/25 20:21 Last Admin: 06/17/25 22:25 Dose: 4 mg Documented By: SURI Ondansetron HCl (Ondansetron 4 Mg Odt Prepack) 1 bottle MISC DIRECTED ONE Stop: 06/18/25 02:58 Last Admin: 06/18/25 05:34 Dose: 1 bottle Documented By: Sodium Biphosphate/Sodium Phosphate (Fleets Enema) 1 each PA NOW ONE Stop: 06/18/25 02:19 Last Admin: 06/18/25 03:01 Dose: 1 each Documented By: Vital Signs Vital signs: Vital Signs - 8 hr 06/17/25 23:32 06/18/25 00:00 06/18/25 00:30 Pulse Rate 95 H 91 H 91 H Respiratory Rate Blood Pressure Pulse Oximetry 92 98 98 Oxygen Delivery Method 06/18/25 00:37 06/18/25 00:37 06/18/25 01:00 Pulse Rate 88 91 H Respiratory Rate 16 Blood Pressure 106/69 Pulse Oximetry 99 98 Oxygen Delivery Method 06/18/25 01:00 06/18/25 01:24 06/18/25 01:24 Pulse Rate 94 H Respiratory Rate Blood Pressure 115/76 106/70 Pulse Oximetry 99 Oxygen Delivery Method 06/18/25 01:30 06/18/25 01:30 06/18/25 02:00 Pulse Rate 89 Respiratory Rate Blood Pressure 107/72 110/76 Pulse Oximetry 96 Oxygen Delivery Method 06/18/25 02:00 06/18/25 02:30 06/18/25 02:30 Pulse Rate 88 83 Respiratory Rate Blood Pressure 113/62 Pulse Oximetry 98 100 Oxygen Delivery Method Room Air 06/18/25 03:00 06/18/25 03:01 06/18/25 03:01 Pulse Rate 89 89 Respiratory Rate Blood Pressure 106/79 Pulse Oximetry 95 Oxygen Delivery Method 06/18/25 03:30 06/18/25 03:31 06/18/25 03:31 Pulse Rate 86 Respiratory Rate Blood Pressure 87/52 L Pulse Oximetry 99 98 Oxygen Delivery Method 06/18/25 03:32 06/18/25 03:32 06/18/25 03:33 Pulse Rate 90 68 Respiratory Rate 16 Blood Pressure 107/69 107/69 Pulse Oximetry 100 Oxygen Delivery Method Room Air 06/18/25 05:31 06/18/25 05:31 Pulse Rate Respiratory Rate Blood Pressure 94/66 Pulse Oximetry 98 Oxygen Delivery Method Room Air <Cayetano Montgomery MD - Last Filed: 06/18/25 06:39> Orders Ordered: Discontinued Medications Hydrocodone Bitart/Acetaminophen (Hydrocodone/Acet 5/325 Prepack) 1 bottle MISC DIRECTED ONE Stop: 06/18/25 02:58 Last Admin: 06/18/25 05:34 Dose: 1 bottle Documented By: Hydromorphone HCl (Hydromorphone Hcl 0.5 Mg/0.5 Ml Syringe) 0.5 mg IV NOW ONE Stop: 06/18/25 01:00 Last Admin: 06/18/25 01:32 Dose: 0.5 mg Documented By: INNA Sodium Chloride (Normal Saline 0.9%) 1,000 mls @ 1,000 mls/hr IV BOLUS ONE Stop: 06/17/25 21:19 Last Infusion: 06/18/25 00:09 Dose: Infused Documented By: Admin: 06/17/25 22:24 Dose: 1,000 mls/hr Documented By: SURI Sodium Chloride (Normal Saline 0.9%) 1,000 mls @ 1,000 mls/hr IV BOLUS ONE Stop: 06/18/25 01:58 Last Infusion: 06/18/25 02:54 Dose: Infused Documented By: Admin: 06/18/25 01:32 Dose: 1,000 mls/hr Documented By: INNA Doxycycline Hyclate 100 mg/ (Sodium Chloride) 100 mls @ 100 mls/hr IV NOW ONE Stop: 06/18/25 01:02 Last Infusion: 06/18/25 02:54 Dose: Infused Documented By: Admin: 06/18/25 01:33 Dose: 100 mls/hr Documented By: INNA Ketorolac Tromethamine (Ketorolac 30 Mg/Ml Vial) 30 mg IV NOW ONE Stop: 06/17/25 20:21 Last Admin: 06/17/25 22:25 Dose: 30 mg Documented By: SURI Morphine Sulfate (Morphine 4 Mg/Ml Inj) 4 mg IV NOW ONE Stop: 06/17/25 20:21 Last Admin: 06/17/25 22:25 Dose: 4 mg Documented By: SURI Ondansetron HCl (Ondansetron 4 Mg/2 Ml Inj) 4 mg IV NOW ONE Stop: 06/17/25 20:21 Last Admin: 06/17/25 22:25 Dose: 4 mg Documented By: SURI Ondansetron HCl (Ondansetron 4 Mg Odt Prepack) 1 bottle MISC DIRECTED ONE Stop: 06/18/25 02:58 Last Admin: 06/18/25 05:34 Dose: 1 bottle Documented By: Sodium Biphosphate/Sodium Phosphate (Fleets Enema) 1 each PA NOW ONE Stop: 06/18/25 02:19 Last Admin: 06/18/25 03:01 Dose: 1 each Documented By: AB Vital Signs Vital signs: Vital Signs - 8 hr 06/17/25 23:32 06/18/25 00:00 06/18/25 00:30 Pulse Rate 95 H 91 H 91 H Respiratory Rate Blood Pressure Pulse Oximetry 92 98 98 Oxygen Delivery Method 06/18/25 00:37 06/18/25 00:37 06/18/25 01:00 Pulse Rate 88 91 H Respiratory Rate 16 Blood Pressure 106/69 Pulse Oximetry 99 98 Oxygen Delivery Method 06/18/25 01:00 06/18/25 01:24 06/18/25 01:24 Pulse Rate 94 H Respiratory Rate Blood Pressure 115/76 106/70 Pulse Oximetry 99 Oxygen Delivery Method 06/18/25 01:30 06/18/25 01:30 06/18/25 02:00 Pulse Rate 89 Respiratory Rate Blood Pressure 107/72 110/76 Pulse Oximetry 96 Oxygen Delivery Method 06/18/25 02:00 06/18/25 02:30 06/18/25 02:30 Pulse Rate 88 83 Respiratory Rate Blood Pressure 113/62 Pulse Oximetry 98 100 Oxygen Delivery Method Room Air 06/18/25 03:00 06/18/25 03:01 06/18/25 03:01 Pulse Rate 89 89 Respiratory Rate Blood Pressure 106/79 Pulse Oximetry 95 Oxygen Delivery Method 06/18/25 03:30 06/18/25 03:31 06/18/25 03:31 Pulse Rate 86 Respiratory Rate Blood Pressure 87/52 L Pulse Oximetry 99 98 Oxygen Delivery Method 06/18/25 03:32 06/18/25 03:32 06/18/25 03:33 Pulse Rate 90 68 Respiratory Rate 16 Blood Pressure 107/69 107/69 Pulse Oximetry 100 Oxygen Delivery Method Room Air 06/18/25 05:31 06/18/25 05:31 Pulse Rate Respiratory Rate Blood Pressure 94/66 Pulse Oximetry 98 Oxygen Delivery Method Room Air MDM - Abdominal Pain <Desmond Park MD - Last Filed: 06/21/25 22:52> Lab Data 06/18/25 00:30 06/18/25 00:30 Labs: Lab Results 06/18/25 06/18/25 Range/Units 00:30 03:05 WBC 16.6 H (4.5-11.0) X10^3/uL RBC 4.85 (4.0-5.2) X10^6/uL Hgb 13.6 (12.0-16.0) g/dL Hct 41.1 (36-46) % MCV 84.8 (80-100) fL MCH 28.0 (26-34) PG MCHC 33.0 (30-36) % RDW 14.6 (11.6-14.8) % Plt Count 235 (150-400) X10^3/uL Neut % (Auto) 93.1 H (50-75) % Lymph % (Auto) 3.9 L (25-40) % [place] % (Auto) 2.7 L (3-14) % Eos % (Auto) 0.0 L (2-4) % Baso % (Auto) 0.3 (0-2) % Neut # (Auto) 20597 H (2821-0705) /uL Lymph # (Auto) 600 L (1652-3885) /uL [place] # (Auto) 400 (0-900) /uL Eos # (Auto) 0 (0-450) /uL Baso # (Auto) 100 (0-100) /uL Sodium 136 L (137-145) mmol/L Potassium 4.7 (3.4-5.1) mmol/L Chloride 111 H (98-107) mmol/L Carbon Dioxide 16 L (22-32) mmol/L BUN 13 (7-17) mg/dL Creatinine 0.79 (0.52-1.04) mg/dL Estimated GFR > 60 (>60) mL/min BUN/Creatinine Ratio 16.5 (6-22) Glucose 95 (70-99) mg/dL Calcium 8.1 L (8.4-10.2) mg/dL Total Bilirubin 0.9 (0.2-1.3) mg/dL AST 28 (14-36) IU/L ALT 18 (<35) IU/L Alkaline Phosphatase 50 (38-126) U/L Total Protein 6.8 (6.3-8.2) g/dL Albumin 3.8 (3.5-5.0) g/dL Globulin 3.0 (1.7-4.1) g/dL Albumin/Globulin Ratio 1.3 (1.0-2.8) Lipase 35 (23-300) U/L Ur Bilirubin Confirm Negative (Negative) Urine RBC None seen (0-5/HPF) Urine WBC 1-5/hpf (0-5/HPF) Ur Squamous Epith Cells 5-10 /hpf H (0-5/HPF) Urine Bacteria Few (2-10) H (None) Ur Culture Indicated? Cult not indicated Vol Urine Centrifuged 10ml (spun) Point of care testing: Point of Care Testing Test Results Negative Urine Dip Bedside Urine Glucose Negative Bedside Urine Bilirubin + 1 Bedside Urine Ketone ++ 40 Urine Specific [place] 1.015 Bedside Urine Occult Blood - Negative Bedside Urine pH 6.0 Bedside Urine Protein - Negative Bedside Urine Urobilinogen - Negative Bedside Urine Nitrite - Negative Bedside Urine Leukocytes +/- 15 Esterase MDM Narrative Medical decision making narrative: 23:00 Patient care transferred to Dr. Montgomery at the change of shift with IV placement, lab work, hydration and further testing pending. She may need imaging depending on her lab values. CT scan versus plain films to assess for constipation or more serious or severe cause of her abdominal symptoms. <Cayetano Montgomery MD - Last Filed: 06/18/25 06:39> Lab Data Attestation: I reviewed the patient's lab results. Lab results narrative: White blood cell count 63469, hemoglobin 13.6, platelets adequate. Glucose 95. Normal renal function, serum potassium. Serum carbon dioxide 16 low, sodium 136 slight low. Liver functions and lipase normal. Labs: Lab Results 06/18/25 06/18/25 Range/Units 00:30 03:05 WBC 16.6 H (4.5-11.0) X10^3/uL RBC 4.85 (4.0-5.2) X10^6/uL Hgb 13.6 (12.0-16.0) g/dL Hct 41.1 (36-46) % MCV 84.8 (80-100) fL MCH 28.0 (26-34) PG MCHC 33.0 (30-36) % RDW 14.6 (11.6-14.8) % Plt Count 235 (150-400) X10^3/uL Neut % (Auto) 93.1 H (50-75) % Lymph % (Auto) 3.9 L (25-40) % [place] % (Auto) 2.7 L (3-14) % Eos % (Auto) 0.0 L (2-4) % Baso % (Auto) 0.3 (0-2) % Neut # (Auto) 84430 H (0599-6332) /uL Lymph # (Auto) 600 L (6615-3820) /uL [place] # (Auto) 400 (0-900) /uL Eos # (Auto) 0 (0-450) /uL Baso # (Auto) 100 (0-100) /uL Sodium 136 L (137-145) mmol/L Potassium 4.7 (3.4-5.1) mmol/L Chloride 111 H (98-107) mmol/L Carbon Dioxide 16 L (22-32) mmol/L BUN 13 (7-17) mg/dL Creatinine 0.79 (0.52-1.04) mg/dL Estimated GFR > 60 (>60) mL/min BUN/Creatinine Ratio 16.5 (6-22) Glucose 95 (70-99) mg/dL Calcium 8.1 L (8.4-10.2) mg/dL Total Bilirubin 0.9 (0.2-1.3) mg/dL AST 28 (14-36) IU/L ALT 18 (<35) IU/L Alkaline Phosphatase 50 (38-126) U/L Total Protein 6.8 (6.3-8.2) g/dL Albumin 3.8 (3.5-5.0) g/dL Globulin 3.0 (1.7-4.1) g/dL Albumin/Globulin Ratio 1.3 (1.0-2.8) Lipase 35 (23-300) U/L Ur Bilirubin Confirm Negative (Negative) Urine RBC None seen (0-5/HPF) Urine WBC 1-5/hpf (0-5/HPF) Ur Squamous Epith Cells 5-10 /hpf H (0-5/HPF) Urine Bacteria Few (2-10) H (None) Ur Culture Indicated? Cult not indicated Vol Urine Centrifuged 10ml (spun) Point of care testing: Point of Care Testing Test Results Negative Urine Dip Bedside Urine Glucose Negative Bedside Urine Bilirubin + 1 Bedside Urine Ketone ++ 40 Urine Specific [place] 1.015 Bedside Urine Occult Blood - Negative Bedside Urine pH 6.0 Bedside Urine Protein - Negative Bedside Urine Urobilinogen - Negative Bedside Urine Nitrite - Negative Bedside Urine Leukocytes +/- [address] scan - abdomen/pelvis: Radiologist's Impression: [address] [address] [address] Scan Report Signed Patient: Liana Coburn MR#: [id number] : 1985 Acct:[id number] Age/Sex: 39 / F Date of Service: 06/18/25 Loc: ED Accession Number: [id number] Procedure: CT abdomen pelvis w con Ordering Provider: Cayetano Montgomery MD PROCEDURE: CT ABDOMEN PELVIS W CON INDICATIONS: lower abd pain post-IVF, no BM 2-3d, WBC 16 TECHNIQUE: After the administration of intravenous contrast, axial sections acquired from the lung bases to the pubic symphysis. Coronal and sagittal reformats were performed. For radiation dose reduction, the following was used: automated exposure control, adjustment of mA and/or kV according to patient size. COMPARISON: None. FINDINGS: Image quality: Diagnostic. Lower Chest: No significant findings. ABDOMEN: Liver: No solid mass. Gallbladder: No radiopaque gallstones or wall thickening. Biliary ducts: No biliary dilation. Pancreas: No ductal dilation. Spleen: Size is within normal limits. Adrenal Glands: No adrenal nodules. Kidneys and Ureters: No hydronephrosis. No solid mass. No complex renal cystic lesion which requires follow up. Stomach and Bowel: Normal colonic caliber, without significant wall thickening. Moderate distension of the large bowel with fluid. No transition point identified. More solid stool is formed within the sigmoid colon, with a small rectal stool load. Peritoneum: No abnormal intraperitoneal fluid. No free air. Ventral Wall: No significant ventral hernia. Abdominal Nodes: No retroperitoneal or mesenteric adenopathy by size criteria. Vessels: Aorta and inferior vena cava are normal in size. PELVIS: Pelvic Organs: Ovaries are enlarged, measuring 8.3 x 4.3 x 6.2 cm on the right and 7.2 x 6.7 by 7.0 cm on the left. No twisting of the vascular pedicle. Extensive bilateral ovarian follicles. Ovaries are relatively symmetric in location. Bladder: No bladder wall thickening, accounting for underdistention. Pelvic Nodes: No enlarged lymph nodes. Miscellaneous: No inguinal hernias are seen. Bones: No aggressive osseous abnormality. IMPRESSION: Suspected ovarian hyperstimulation syndrome, with a significant , symmetric enlargement of the ovaries. No evidence of ovarian torsion, as the vascular pedicle appears within normal limits and the ovaries are relatively symmetric in location. No ascites or pericardial effusion. Moderate distension of the large bowel, containing liquid and formed stool. There is increased formed stool within the sigmoid colon, and a low rectal stool load. Findings may indicate constipation. Dictated by: Edgar Brumfield M.D. on 06/18/2025 at 1:53 Approved by: Edgar Brumfield M.D. on 06/18/2025 at 1:56 [facility] Narrative Medical decision making narrative: 23:00 Patient care transferred to Dr. Montgomery at the change of shift with IV placement, lab work, hydration and further testing pending. She may need imaging depending on her lab values. CT scan versus plain films to assess for constipation or more serious or severe cause of her abdominal symptoms. 06/17/25, 2300, [place]. Signout from Dr Park. 39-year-old female had recent overian egg retrieval procedure pre-IVF on Friday, no bowel movement since that time within increasing lower abdominal pain. No imaging so far, consider screening x-ray versus CT. Afebrile, sirs screen negative on triage vitals. Patient was in pain, seems to have responded to IV morphine and Toradol. Labs pending, blood not yet collected. Assumed care. Lab data: White blood cell count 53119, hemoglobin 13.6, platelets adequate. Glucose 95. Normal renal function, serum potassium. Serum carbon dioxide 16 low, sodium 136 slight low. Liver functions and lipase normal. Elevated white blood cell count, considered plain film x-ray abdomen, change to CT abdomen and pelvis. Patient agreeable. Keep NPO. CT abdomen and pelvis. IMPRESSION: Suspected ovarian hyperstimulation syndrome, with a significant , symmetric enlargement of the ovaries. No evidence of ovarian torsion, as the vascular pedicle appears within normal limits and the ovaries are relatively symmetric in location. No ascites or pericardial effusion. Moderate distension of the large bowel, containing liquid and formed stool. There is increased formed stool within the sigmoid colon, and a low rectal stool load. Findings may indicate constipation. See radiology report. Copy of report given to patient with discussion of results. Patient interested in trying enema here, was given, with some results. Symptoms improved. Discharged home. Follow up with fertility providers as planned. Return precautions discussed. Discharge Plan Departure Patient Disposition: Home Clinical Impression: Abdominal pain, Constipation Instructions: DI for Constipation Activity Restrictions/Additional Instructions: Status post ovarian eggs retrieval for anticipated IVF, no bowel movement for the last 2-3 days, increasing abdominal pain, some nausea and vomiting. IV pain medication antinausea medications given. White blood cell count elevated. We discussed advanced abdominopelvic imaging, CT scan abdomen and pelvis was ordered. CT scan showed suspected ovarian hyperstimulation syndrome with significant symmetrical enlargement of the ovaries, not surprising changes prior to ovarian egg harvesting, but might be some cause of discomfort, or there might be discomfort from the recent procedure itself. No mention of any perforation or formation of abscess, or dependent fluid in the pelvis suggestive of bleeding/hemorrhage. There was moderate distention of the large bowel with liquid informed stool, including increased volume in the sigmoid colon, and low rectal stool loading, suspicious for constipation. You had been trying [id number] enemas and stool softeners at home. Enema given here in the emergency department. Follow up with your fertility specialists as planned. Home pack of hydrocodone provided for additional pain control, though this can be constipating as an opiate itself. Home pack of ondansetron oral dissolvable tablet also provided, for control of nausea to use as needed. Prescriptions: No Action letrozole 2.5 mg tablet 2.5 mg PO DAILY Qty: 5 1RF Rx Instructions: take one tab daily on days 3 through 7 of your menstrual cycle albuterol sulfate 90 mcg/actuation HFA aerosol inhaler 2 puff inhalation Q4-6H PRN (Reason: shortness of breath or wheezing) Qty: 18 2RF dextroamphetamine-amphetamine 5 mg tablet 1 tab PO DAILY PNV 119-iron fum-folic acid 29 mg iron- 1 mg tablet 1 tab PO DAILY Qty: 90 3RF Referrals: Monik Anna MD [Primary Care Provider, Family Practice] Stand Alone Forms: Patient Portal/API
--- NOTE | 2025-06-17 20:57 | PC.NURSE ---
pt waiting on US guided IV, float/triage nurse to start standard IV 2x with no luck, battery recharger aware
[2025-06-17] MEDS: SODIUM CHLORIDE 0.9% 1,000 ML 1000 ML IV (22:24)
[2025-06-17] MEDS: ONDANSETRON 4 MG/2 ML INJ IV (22:25)
[2025-06-17] MEDS: KETOROLAC 30 MG/ML VIAL IV (22:25)
[2025-06-17] MEDS: MORPHINE 4 MG/ML INJ IV (22:25)
[2025-06-17 23:32] VITALS: PULSE 95; O2SAT 92
--- NOTE | 2025-06-17 23:38 | PC.NURSE ---
both lab and this nurse were unable to collect blood from pt, this nurse tried to collectlabs half way through 1L NS, but no luck,will try again after full liter done. provider aware
[2025-06-18] VITALS (15 sets, daily range): BP systolic 87–115; BP diastolic 52–79; PULSE 68–94; RESP 16; O2SAT 95–100
[2025-06-18 00:57] LABS: Add Manual Diff / Slide Review NO; Hematocrit 41.1 % (36-46); Hemoglobin 13.6 g/dL (12.0-16.0); Lymphocytes Absolute Auto 600 /uL (1100-4500); Mean Corpuscular HGB Conc 33.0 % (30-36); Mean Corpuscular Hemoglobin 28.0 PG (26-34); Mean Corpuscular Volume 84.8 fL (80-100); Platelet Count 235 X10^3/uL (150-400)
--- NOTE | 2025-06-18 01:02 | DI.CT.S_ITS ---
PROCEDURE: CT ABDOMEN PELVIS W CON INDICATIONS: lower abd pain post-IVF, no BM 2-3d, WBC 16 TECHNIQUE: After the administration of intravenous contrast, axial sections acquired from the lung bases to the pubic symphysis. Coronal and sagittal reformats were performed. For radiation dose reduction, the following was used: automated exposure control, adjustment of mA and/or kV according to patient size. COMPARISON: None. FINDINGS: Image quality: Diagnostic. Lower Chest: No significant findings. ABDOMEN: Liver: No solid mass. Gallbladder: No radiopaque gallstones or wall thickening. Biliary ducts: No biliary dilation. Pancreas: No ductal dilation. Spleen: Size is within normal limits. Adrenal Glands: No adrenal nodules. Kidneys and Ureters: No hydronephrosis. No solid mass. No complex renal cystic lesion which requires follow up. Stomach and Bowel: Normal colonic caliber, without significant wall thickening. Moderate distension of the large bowel with fluid. No transition point identified. More solid stool is formed within the sigmoid colon, with a small rectal stool load. Peritoneum: No abnormal intraperitoneal fluid. No free air. Ventral Wall: No significant ventral hernia. Abdominal Nodes: No retroperitoneal or mesenteric adenopathy by size criteria. Vessels: Aorta and inferior vena cava are normal in size. PELVIS: Pelvic Organs: Ovaries are enlarged, measuring 8.3 x 4.3 x 6.2 cm on the right and 7.2 x 6.7 by 7.0 cm on the left. No twisting of the vascular pedicle. Extensive bilateral ovarian follicles. Ovaries are relatively symmetric in location. Bladder: No bladder wall thickening, accounting for underdistention. Pelvic Nodes: No enlarged lymph nodes. Miscellaneous: No inguinal hernias are seen. Bones: No aggressive osseous abnormality. IMPRESSION: Suspected ovarian hyperstimulation syndrome, with a significant , symmetric enlargement of the ovaries. No evidence of ovarian torsion, as the vascular pedicle appears within normal limits and the ovaries are relatively symmetric in location. No ascites or pericardial effusion. Moderate distension of the large bowel, containing liquid and formed stool. There is increased formed stool within the sigmoid colon, and a low rectal stool load. Findings may indicate constipation. Dictated by: Edgar Brumfield M.D. on 06/18/2025 at 1:53 Approved by: Edgar Brumfield M.D. on 06/18/2025 at 1:56
[2025-06-18 01:04] LABS: Alanine Aminotransferase 18 IU/L (<35); Albumin 3.8 g/dL (3.5-5.0); Albumin Globulin Ratio 1.3 (1.0-2.8); Alkaline Phosphatase 50 U/L (38-126); Blood Urea Nitrogen 13 mg/dL (7-17); Calcium 8.1 mg/dL (8.4-10.2); Carbon Dioxide 16 mmol/L (22-32); Chloride 111 mmol/L (98-107); Estimated Glomerular Filt Rate > 60 mL/min (>60); Globulin 3.0 g/dL (1.7-4.1); Glucose 95 mg/dL (70-99); HEMOLYSIS 32 (0-50); Lipase 35 U/L (23-300); Potassium 4.7 mmol/L (3.4-5.1); Sodium 136 mmol/L (137-145); Total Protein 6.8 g/dL (6.3-8.2)
[2025-06-18] MEDS: SODIUM CHLORIDE 0.9% 1,000 ML 1000 ML IV (01:32)
[2025-06-18] MEDS: DOXYCYCLINE 100 MG in SODIUM CHLORIDE 0.9% 100 ML IV (01:33)
[2025-06-18] MEDS: FLEETS ENEMA 1 EACH PR (03:01)
[2025-06-18 04:11] LABS: Ictotest Urine Negative (Negative)
[2025-06-18 04:12] LABS: Culture Indicated Urine Cult Not Indicated
[2025-06-18] MEDS: ONDANSETRON 4 MG ODT PREPACK 1 BOTTLE MISC (05:34)
--- NOTE | 2025-06-18 05:35 | PC.NURSE ---
Pt pain improved, allowed to sleep and rest after having BM.
== END 2025-06-18 05:42 | disposition home or self-care (01) ==
PROVIDERS: Emergency Medicine; Emergency Provider Emergency Medicine; PCP Family Medicine
DX: K59.09 Other constipation (principal); R11.2 Nausea with vomiting, unspecified
CPT/HCPCS: 51798; 74177; 80053; 81003; 81015; 81025; 83690; 85025; 87086; 96365; 96375; 99284; J1171; J1885; J2272; J2405; J7030; J7050; Q9967